=== PATIENT | male | born 1970 | race Caucasian/White ===

== ENCOUNTER 2016-12-26 10:22 | Emergency (ER) | payer OTHER ==
[~2016-12-26] VITALS: Ht 172.7 cm; Wt 138.5 kg
[~2016-12-26 10:22] MED LIST: BUSPAR5 MG PO; DIVALPROEX SOD500 MG PO; GEODON80 MG PO; KLONOPIN2 MG PO; NEURONTIN100 MG PO; RISPERDAL2 MG PO
[2016-12-26 10:38] VITALS: BP 152/85
--- NOTE | 2016-12-26 10:49 | NUR ---
PATIENT AMBULATED TO BED 6 AT THIS TIME.
--- NOTE | 2016-12-26 11:01 | NUR ---
46/M presents to ED for evaluation of bilateral flank pain x1 month. Pt denies any injury or trauma. Patient c/o 8/10 pain. Patient denies N/V/D. Pt denies s/s of UTI. Patient is AOX4, ambulatory with steady gait. VSS.
--- NOTE | 2016-12-26 11:34 | NUR ---
Dr. He evaluating patient at bedside.
[2016-12-26] MEDS ORDERED: KETOROLAC 60 MG/2 ML VIAL IM ONE (11:40)
--- NOTE | 2016-12-26 11:46 | NUR ---
Patient taken to x-ray via w/c.
--- NOTE | 2016-12-26 12:09 | NUR ---
Dr. He re-evaluating patient at bedside.
[2016-12-26 12:45] VITALS: BP 105/71
--- NOTE | 2016-12-26 12:46 | NUR ---
Patient discharged with v/s stable. Written and verbal after care instructions given and explained. Patient alert, oriented and verbalized understanding of instructions. Ambulatory with steady gait. All questions addressed prior to discharge. ID band removed. Patient advised to follow up with PMD. Rx of MOTRIN FLEXERIL, TRAMADOL given. Patient educated on indication of medication including possible reaction and side effects. Opportunity to ask questions provided and answered.
--- NOTE | 2016-12-26 12:46 | NUR ---
Chart checked and completed. The patient's care was reviewed and supervised by Noel Hodges RN.
== END 2016-12-26 12:46 | disposition home or self-care (01) ==
LOC: MED 10:22
DX: S39.012A Strain of muscle, fascia and tendon of lower back, initial encounter (principal); R03.0 Elevated blood-pressure reading, without diagnosis of hypertension; Z79.899 Other long term (current) drug therapy; X58.XXXA Exposure to other specified factors, initial encounter; Y93.89 Activity, other specified; Y92.89 Other specified places as the place of occurrence of the external cause; Y99.8 Other external cause status
CPT/HCPCS: 72100; 81002; 96372; 99284; J1885